=== PATIENT | female | born 1950 | race Caucasian/White ===

== ENCOUNTER 2016-12-31 12:17 | Emergency (ER) | payer MEDICARE, OTHER ==
[~2016-12-31] VITALS: Ht 162.6 cm; Wt 68.2 kg
[~2016-12-31 12:17] MED LIST: CALCIUM500 MG PO; LEVOXYL0.088 MG PO; MULTI VITAMINS1 CTB PO; PRILOTC PO; THERAGRAN1 TAB PO; ZOCOR 80MG80 MG PO; ZOLOFT 50MG50 MG PO; ZYRTEC ALLERGY10 MG PO
[2016-12-31 12:18] VITALS: TEMP 98.2
[2016-12-31 12:54] LABS: BASO # 0.1 (0.0-0.2); BASO % 0.9 % (0.0-2.0); EOS # 0.1 (0.0-0.7); EOS % 1.4 % (0-4.0); GRAN # 5.3 (1.4-6.5); GRAN % 67.9 % (42.2-75.2); HEMATOCRIT 41.9 % (37.0-47.0); HEMOGLOBIN 13.8 g/dl (12.5-16.0); LYMPH # 1.5 (1.2-3.4); LYMPH % 19.8 % (20.0-51.0); MEAN CELL VOLUME 90 fl (80.0-100.0); MEAN CORPUSCULAR HEMOGLOBIN 30 pg (27.0-31.0); MEAN CORPUSCULAR HGB CONC 33 g/dl (33.0-37.0); MEAN PLATELET VOLUME 10.7 fl (7.4-10.4); MONO # 0.7 (0.1-0.6); MONO % 9.6 % (1.7-9.3); PLATELET COUNT 185 K/mm3 (130-400); RED BLOOD COUNT 4.67 M/mm3 (4.10-5.30); REDCELL DISTRIBUTION WIDTH-CV 12.4 % (11.5-14.5); WHITE BLOOD COUNT 7.7 K/mm3 (4.8-10.8)
[2016-12-31 12:58] LABS: ADJUSTED CALCIUM 9.5 mg/dL (8.4-10.2); ALANINE AMINOTRANSFERASE 25 U/L (9-52); ALBUMIN 4.2 gm/dL (3.5-5.0); ALKALINE PHOSPHATASE 119 U/L (50-136); ANION GAP 12 mmol/L (7-16); BLOOD UREA NITROGEN 14 mg/dL (7-17); CALCIUM 9.7 mg/dL (8.4-10.2); CARBON DIOXIDE 25 mmol/L (22-30); CHLORIDE 101 mmol/L (98-107); CREATININE, serum 0.62 mg/dL (0.52-1.25); GLUCOSE 127 mg/dL (74-106); LIPASE 235 U/L (23-300); POTASSIUM 3.7 mmol/L (3.4-5.0); SODIUM 137 mmol/L (137-145); TOTAL PROTEIN 7.3 gm/dL (6.4-8.2)
[2016-12-31 13:10] LABS: B-TYPE NATRIURETIC PEPTIDE 74 pg/mL (0-125)
[2016-12-31 13:11] LABS: TROPONIN-I < 0.012 ng/mL (0.000-0.034)
[2016-12-31] MEDS ORDERED: SYNTHROID0.075 MG/T PO (13:19)
[2016-12-31] MEDS ORDERED: ZOLOFT 100MG100 MG PO (13:19)
[2016-12-31] MEDS ORDERED: TOPROL XL 50MG50 MG PO (13:19)
[2016-12-31] MEDS ORDERED: XALATAN EYE DROPS OU (13:22)
[2016-12-31] MEDS ORDERED: MEVACOR 20M20 MG/TAB PO (13:23)
[2016-12-31 13:30] VITALS: BP 126/81; PULSE 61
== END 2016-12-31 14:28 | disposition short-term general hospital (02) ==
LOC: COL.ER 12:17
PROVIDERS: Emergency Medicine
DX: R07.9 Chest pain, unspecified (principal); I10 Essential (primary) hypertension; E78.5 Hyperlipidemia, unspecified
CPT/HCPCS: J7030